=== PATIENT | male | born 1975 | race Two or more races ===

== ENCOUNTER 2018-04-09 16:13 | Outpatient (CLI) | payer OTHER ==
[~2018-04-09 16:13] MED LIST: BACTROBAN OINT22 GM TP
== END 2018-04-09 16:23 | disposition home or self-care (01) ==
LOC: RAD 16:13
DX: M25.512 Pain in left shoulder (principal)

== ENCOUNTER 2018-04-18 10:48 | Outpatient (CLI) | payer OTHER | END 2018-04-18 11:05 | disposition home or self-care (01) | LOC: RAD 501 10:48 | DX: S43.015A Anterior dislocation of left humerus, initial encounter (principal) ==

== ENCOUNTER 2018-04-25 13:46 | Outpatient (CLI) | payer OTHER | END 2018-04-25 13:57 | disposition home or self-care (01) | LOC: RAD 501 13:46 | DX: S43.015A Anterior dislocation of left humerus, initial encounter (principal) ==

== ENCOUNTER 2019-11-02 17:41 | Emergency (ER) | payer OTHER ==
[~2019-11-02] VITALS: Ht 175.3 cm; Wt 86.2 kg
[2019-11-02] MEDS ORDERED: LOSARTAN POTASS50 MG (17:43)
== END 2019-11-02 22:05 | disposition home or self-care (01) ==
LOC: ER 17:41
DX: R51 Headache (principal); F06.4 Anxiety disorder due to known physiological condition

== ENCOUNTER 2020-11-24 15:06 | Emergency (ER) | payer OTHER ==
[~2020-11-24] VITALS: Ht 177.8 cm; Wt 88.5 kg
[~2020-11-24 15:06] MED LIST changes: +LOSARTAN POTASS50 MG
[2020-11-24] MEDS ORDERED: LIPITOR20 MG PO (15:27)
== END 2020-11-24 19:22 | disposition home or self-care (01) ==
LOC: ER 15:06
DX: M54.17 Radiculopathy, lumbosacral region (principal); R10.2 Pelvic and perineal pain

== ENCOUNTER 2021-12-14 18:07 | Emergency (ER) | payer OTHER ==
[~2021-12-14] VITALS: Ht 177.8 cm; Wt 88.9 kg
[~2021-12-14 18:07] MED LIST changes: +LIPITOR20 MG PO
== END 2021-12-14 22:01 | disposition home or self-care (01) ==
LOC: ER 18:07
DX: M79.675 Pain in left toe(s) (principal); Z91.013 Allergy to seafood